=== PATIENT | female | born 1990 | race Caucasian/White ===

== ENCOUNTER 2018-03-12 08:58 | Emergency (ER) | payer OTHER ==
[2018-03-12 09:13] VITALS: BP 128/81
--- NOTE | 2018-03-12 09:43 | ED Physician Documentation ---
PD HPI SKIN - Stated complaint Stated Complaint: FACIAL BLISTER - Chief complaint Chief Complaint: Wound - History obtained from History obtained from: Patient - History of Present Illness Timing - onset: How many days ago (3) Timing - duration: Days (3) Timing - details: Abrupt onset, Still present, Constant, Still present in ED Pain level max: 0 Pain level now: 0 Location: Face Quality / character: Itchy Improved by: Other (only applied coconut aloe) Associated symptoms: No: Fever, Myalgias, Joint pain, Headache, Facial swelling, Dyspnea Contributing factors: Unknown Similar symptoms before: Has not had sx before Recently seen: Not recently seen - Additional information Additional information: Pt complained of facial dryness that became blistered, reddened and now with some crusting. States went out for a walk a week ago without wearing a hat. Denies any new make up, lotion, soap, food, clothes. Denies trauma, travel or sick contacts. Has a child who's been well and does not go to daycare. Does not have a job so not exposed to anybody. Review of Systems Ten Systems: 10 systems reviewed and negative Constitutional: denies: Fever, Myalgias, Fatigue Eyes: denies: Photophobia Nose: denies: Rhinorrhea / runny nose, Congestion Throat: denies: Oral lesions / sores, Sore throat Cardiac: denies: Chest pain / pressure Respiratory: denies: Dyspnea, Cough Skin: reports: Rash. denies: Bite / sting Musculoskeletal: denies: Joint pain Neurologic: denies: Generalized weakness Immunocompromised: denies: Immunocompromised PD PAST MEDICAL HISTORY - Past Medical History Cardiovascular: None Respiratory: None Neuro: None Endocrine/Autoimmune: None GI: None FISHING WORKER: None : None HEENT: None Psych: None Musculoskeletal: None Derm: None - Past Surgical History Past Surgical History: No - Present Medications Home Medications: Ambulatory Orders Medication Instructions Recorded Confirmed No Known Home Medications 03/12/18 03/12/18 - Allergies Allergies/Adverse Reactions: Allergies Allergy/AdvReac Type Severity Reaction Status Date / Time No Known Drug Allergies Allergy Verified 03/12/18 09:13 - Social History Does the pt smoke?: No Smoking Status: Never smoker Does the pt drink ETOH?: Yes ETOH Use: Wine Does the pt have substance abuse?: No - Family History Family history: reports: Non contributory - Immunizations Immunizations are current?: Yes PD ED PE NORMAL - Vitals Vital signs reviewed: Yes - General General: Alert and oriented X 3, No acute distress, Well developed/nourished - HEENT HEENT: PERRL, EOMI, Ears normal, Moist mucous membranes, Pharynx benign - Neck Neck: Supple, no meningeal sign - Cardiac Cardiac: RRR, No murmur - Respiratory Respiratory: No respiratory distress, Clear bilaterally - Abdomen Abdomen: Normal bowel sounds, Soft, Non tender, Non distended - Derm Derm: Normal color, Warm and dry, Other (Rash only on Face - pinkish rash concentrated on hairline and sides of face, forehead and cheeks. Few with clear crust. Mostly dry. No drainage. The right cheek close to the nose with a small area where it appears beige in color but surrounded with the pinkish rash. Pt states it starts this way then it dries up w/ scant crust. Rash crosses the midline. No fluctuance. Nontender.) - Extremities Extremities: No deformity, No edema - Neuro Neuro: Alert and oriented X 3 - Psych Psych: Normal mood, Normal affect Results - Vitals Vitals: Vital Signs - 24 hr 03/12/18 09:10 Temperature 36.0 C L Heart Rate 98 Respiratory 16 Rate Blood Pressure 128/81 H O2 Saturation 100 Oxygen O2 Source Room air PD MEDICAL DECISION MAKING - ED course Complexity details: re-evaluated patient (Discussed with pt option of oral antibiotics but she stated she's and does not want any meds.), considered differential (sunburn, contact dermatitis, tinea, allergy to make up), d/w patient (Instructed to keep face clean and dry and to call a cat scanner operator for reevaluation ARTIE. OTC oral benadryl tablet for itching. Pt expressed understanding of outpatient plans.) Departure - Departure Disposition: 01 Home, Self Care Clinical Impression: Rash and nonspecific skin eruption Condition: Good Instructions: ED Dermatitis Non Specific Rash Comments: KEEP THE AFFECTED CLEAN AND DRY. CALL THE [facility] AT [phone] TODAY FOR AN APPOINTMENT TO EVALUATE YOUR FACIAL RASH. IF WORSE RETURN TO THE E.R.
== END 2018-03-12 10:00 | disposition home or self-care (01) ==
LOC: ED 08:58
DX: R21 Rash and other nonspecific skin eruption (principal)
CPT/HCPCS: 99282; 99283